=== PATIENT | female | born 1980 | race Caucasian/White ===

== ENCOUNTER 2018-02-05 14:31 | Emergency (ER) | payer OTHER, SELFPAY ==
--- NOTE | 2018-02-05 15:22 | RAD REPORT ---
EXAM DESCRIPTION: RAD - Foot Right 3 View - 02/05/2018 3:02 pm CLINICAL HISTORY: Work injury, foot pain, no further localization information COMPARISON: None. FINDINGS: No fracture, dislocation or periosteal reaction. No air or foreign body in the soft tissues. IMPRESSION: Negative right foot examination.
--- NOTE | 2018-02-05 15:30 | ER ---
Nurse's Notes [facility] Name: Jenni Staley Age: 37 yrs Sex: Female : 1980 Arrival Date: 02/05/2018 Time: 14:35 Bed 26 Private MD: Diagnosis: Pain in right foot Presentation: 02/05 14:39 Presenting complaint: Patient states: I injured my right foot at work about 2 hours la1 ago. CMS intact. Transition of care: patient was not received from another setting of care. Onset of symptoms was February 05, 2018. Risk Assessment: Do you want to hurt yourself or someone else? Patient reports no desire to harm self or others. Initial Sepsis Screen: Does the patient meet any 2 criteria? No. Patient's initial sepsis screen is negative. Does the patient have a suspected source of infection? No. Patient's initial sepsis screen is negative. Care prior to arrival: None. 14:39 Method Of Arrival: Ambulatory la1 14:39 Acuity: REESE 4 la1 Triage Assessment: 15:51 General: Behavior is. General: Appears uncomfortable. Injury Description: Crush injury. 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 - Social history:: Smoking status: Patient/guardian denies using tobacco. - Ebola Screening: : No symptoms or risks identified at this time. Screenin:49 Abuse screen: Denies threats or abuse. Nutritional screening: No deficits noted. tl3 Tuberculosis screening: No symptoms or risk factors identified. Fall Risk None identified. Assessment: 15:00 General: Appears in no apparent distress. uncomfortable, slender, well developed, well tl3 nourished. Pain: Complains of pain in right foot. Neuro: Level of Consciousness is awake, alert, obeys commands. Cardiovascular: Patient's skin is warm and dry. Respiratory: Airway is patent Respiratory effort is even, unlabored, Respiratory pattern is regular, symmetrical. GI: No signs and/or symptoms were reported involving the gastrointestinal system. : No signs and/or symptoms were reported regarding the genitourinary system. EENT: No signs and/or symptoms were reported regarding the EENT system. Derm: No signs and/or symptoms reported regarding the dermatologic system. Musculoskeletal: Capillary refill < 3 seconds, in right toes. Reports pain in right foot and dorsum of right foot since today, cart of maricarmen came up on the back of pts foot, was wearing work boots at the time. 15:49 Reassessment: Patient appears in no apparent distress at this time. No changes from tl3 previously documented assessment. Patient and/or family updated on plan of care and expected duration. Pain level reassessed. Patient is alert, oriented x 3, equal unlabored respirations, skin warm/dry/pink. Vital Signs: 14:40 BP 113 / 73; Pulse 65; Resp 16; Temp 97.4; Pulse Ox 98% on R/A; Weight 81.65 kg; Height la1 5 ft. 5 in. (165.10 cm); 15:49 BP 105 / 93; Pulse 60; Resp 18; Pulse Ox 100% on R/A; tl3 14:40 Body Mass Index 29.95 (81.65 kg, 165.10 cm) la1 ED Course: 14:35 Patient arrived in ED. rg4 14:39 Triage completed. la1 14:40 Arm band placed on left wrist. la1 14:41 Lori De León FNP-C [facility]. kb 14:41 Cyril Patel MD is Attending Physician. kb 14:43 Kate Caruso, JOSE R is Primary Nurse. tl3 15:00 X-ray completed. Portable x-ray completed in exam room. Patient tolerated procedure jb2 well. 15:02 Foot Right 3 View XRAY In Process Unspecified. EDMS 15:49 Patient has correct armband on for positive identification. tl3 15:49 No provider procedures requiring assistance completed. Patient did not have IV access tl3 during this emergency room visit. Crutch training done. Gonzalo wrap to right ankle. Administered Medications: No medications were administered Outcome: 15:30 Discharge ordered by . kb 15:49 Discharged to home ambulatory, with crutches. tl3 15:49 Condition: stable 15:49 Discharge instructions given to patient, Instructed on discharge instructions, follow up and referral plans. Demonstrated understanding of instructions, follow-up care. 15:54 Patient left the ED. tl3 Signatures: Dispatcher [employer] EDAK Lori De León FNP-C FNP-Hira Hoffmann jb2 Gilberto Reyes, RN RN la1 Anat Nino4 Kate Caruso, RN RN tl3
--- NOTE | 2018-02-05 15:30 | EDPHYS ---
Physician Documentation [facility] Name: Jenni Staley Age: 37 yrs Sex: Female : 1980 Arrival Date: 02/05/2018 Time: 14:35 Bed 26 Private MD: ED Physician Cyril Patel HPI: 02/05 14:49 This 37 yrs old Female presents to ER via Ambulatory with complaints of Foot kb Injury. 14:49 The patient presents with decreased range of motion, an injury, pain, swelling, kb tenderness. The complaints affect the right foot. Context: The problem was sustained at work, resulted from load of mulch was being pulled behind her and the cart got under her foot and bent it , the patient can partially bear weight, the patient is able to ambulate. Onset: The symptoms/episode began/occurred 2 hour(s) ago. Modifying factors: The symptoms are alleviated by nothing, the symptoms are aggravated by weight bearing, movement. Associated signs and symptoms: Pertinent positives: swelling, Pertinent negatives: calf tenderness, fever, nausea, numbness, rash, tingling, vomiting, warmth, weakness. Severity of symptoms: At their worst the symptoms were mild, moderate, in the emergency department the symptoms are unchanged. The patient has not experienced similar symptoms in the past. The patient has not recently seen a physician. 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 - Social history:: Smoking status: Patient/guardian denies using tobacco. - Ebola Screening: : No symptoms or risks identified at this time. ROS: 14:48 Constitutional: Negative for fever, chills, and weight loss, Cardiovascular: Negative kb for chest pain, palpitations, and edema, Respiratory: Negative for shortness of breath, cough, wheezing, and pleuritic chest pain, Abdomen/GI: Negative for abdominal pain, nausea, vomiting, diarrhea, and constipation, Skin: Negative for injury, rash, and discoloration, Neuro: Negative for headache, weakness, numbness, tingling, and seizure. 14:48 MS/extremity: Positive for injury or acute deformity, pain, swelling, tenderness, of the dorsum of right foot. Exam: 14:48 Constitutional: This is a well developed, well nourished patient who is awake, alert, kb and in no acute distress. Head/Face: Normocephalic, atraumatic. Chest/axilla: Normal chest wall appearance and motion. Nontender with no deformity. No lesions are appreciated. Cardiovascular: Regular rate and rhythm with a normal S1 and S2. No gallops, murmurs, or rubs. Normal PMI, no JVD. No pulse deficits. Respiratory: Lungs have equal breath sounds bilaterally, clear to auscultation and percussion. No rales, rhonchi or wheezes noted. No increased work of breathing, no retractions or nasal flaring. Abdomen/GI: Soft, non-tender, with normal bowel sounds. No distension or tympany. No guarding or rebound. No evidence of tenderness throughout. Back: No spinal tenderness. No costovertebral tenderness. Full range of motion. Skin: Warm, dry with normal turgor. Normal color with no rashes, no lesions, and no evidence of cellulitis. Neuro: Awake and alert, GCS 15, oriented to person, place, time, and situation. Cranial nerves II-XII grossly intact. Motor strength 5/5 in all extremities. Sensory grossly intact. Cerebellar exam normal. Normal gait. 14:48 Musculoskeletal/extremity: Extremities: grossly normal except: noted in the dorsum of right foot: pain, swelling, tenderness, ROM: limited active range of motion due to pain, in the right foot, Circulation is intact in all extremities. Sensation intact. Weight bearing: can bear weight with assistance only. Vital Signs: 14:40 BP 113 / 73; Pulse 65; Resp 16; Temp 97.4; Pulse Ox 98% on R/A; Weight 81.65 kg; Height la1 5 ft. 5 in. (165.10 cm); 15:49 BP 105 / 93; Pulse 60; Resp 18; Pulse Ox 100% on R/A; tl3 14:40 Body Mass Index 29.95 (81.65 kg, 165.10 cm) la1 MDM: 14:41 Patient medically screened. kb 14:48 Data reviewed: vital signs, nurses notes. Data interpreted: Pulse oximetry: on room air kb is 98 %. Interpretation: normal. 15:26 Counseling: I had a detailed discussion with the patient and/or guardian regarding: the kb historical points, exam findings, and any diagnostic results supporting the discharge/admit diagnosis, radiology results, the need for outpatient follow up, a family practitioner, to return to the emergency department if symptoms worsen or persist or if there are any questions or concerns that arise at home. 02/05 14:46 Order name: Foot Right 3 View XRAY; Complete Time: 15:23 kb 02/05 15:29 Order name: Crutches; Complete Time: 15:55 kb 02/05 15:29 Order name: Gonzalo Wrap; Complete Time: 15:55 kb Administered Medications: No medications were administered Disposition: 02/05/18 15:30 Discharged to Home. Impression: Pain in right foot. - Condition is Stable. - Discharge Instructions: Foot Sprain, Musculoskeletal Pain. - Medication Reconciliation Form, Thank You Letter, Antibiotic Education, Prescription Opioid Use form. - Follow up: Emergency Department; When: As needed; Reason: Worsening of condition. Follow up: Private Physician; When: 2 - 3 days; Reason: Recheck today's complaints, Continuance of care, Re-evaluation by your physician. Addendum: 02/07/2018 07:13 Co-signature as Attending Physician, Cyril Patel MD I agree with the assessment and c person plan of care. Signatures: Dispatcher [employer] EDMS Lori De León, ABRASIVE GRADER-C ABRASIVE GRADER-Oneilb Cyril Patel MD MD cha Attema, Lee, RN RN la1 Kate Caruso, RN RN tl3 Corrections: (The following items were deleted from the chart) 02/05 15:54 15:30 02/05/2018 15:30 Discharged to Home. Impression: Pain in right foot. Condition is tl3 Stable. Forms are Medication Reconciliation Form, Thank You Letter, Antibiotic Education, Prescription Opioid Use. Follow up: Emergency Department; When: As needed; Reason: Worsening of condition. Follow up: Private Physician; When: 2 - 3 days; Reason: Recheck today's complaints, Continuance of care, Re-evaluation by your physician. kb
== END 2018-02-05 15:54 | disposition home or self-care (01) ==
LOC: ER 14:31
DX: M79.671 Pain in right foot (principal); W23.0XXA Caught, crushed, jammed, or pinched between moving objects, initial encounter; Y93.89 Activity, other specified; Y92.89 Other specified places as the place of occurrence of the external cause; Y99.0 Civilian activity done for income or pay
CPT/HCPCS: 99283